=== PATIENT | male | born 1995 | race American Indian/Alaskan Native ===

== ENCOUNTER 2017-03-04 15:08 | Emergency (ER) | payer SELFPAY ==
[2017-03-04] MEDS ORDERED: TORADOL IM ONE (17:04)
--- NOTE | 2017-03-04 17:47 | XRay Report ---
FINAL REPORT PROCEDURE: XR KNEE 3V LT TECHNIQUE: Three view left knee HISTORY: fall/ LEFT KNEE PAIN COMPARISON: No prior studies are available for comparison. FINDINGS: Mild swelling left knee. No acute fracture is depicted at this time. Possible trace effusion. Inferior patellar pole osteophytic eburnation IMPRESSION: No acute fracture
--- NOTE | 2017-03-04 18:47 | Emergency Department Report ---
Entered by PANDA JORDAN, acting as scribe for BLAINE PLUNKETT NP. ED Lower Extremity HPI - General Chief Complaint: Extremity Injury, Lower Stated Complaint: LEFT LEG PAIN Time Seen by Provider: 03/04/17 16:15 Source: patient Mode of arrival: Ambulatory Limitations: No Limitations - History of Present Illness Initial Comments: This is a 21-year-old male nontoxic, well nourished in appearance, no acute signs of distress, present to ED c/o left knee pain that started today around 1300. Patient states he was playing basketball when he landed on his stated he twisted his ankle. Patient denies popping sensation. Denies any deformity. Patient reports aggravation when walking. Patient denies deformity, chest pain, shortness of breathe, headache, head trauma, LOC, numbness, tingling, stiff neck , nausea, or vomiting. No PMHx. CHRIS. Complaint: knee injury (left) -: This afternoon (1300) Injury: Knee: Left Place: street/outdoors (while playing basketball) Severity: moderate Severity scale (0 -10): 5 Improves With: nothing Worsens With: weight bearing, movement Context: fall Associated Symptoms: able to partially bear weight, ambulatory. denies: snap/ pop sensation, swelling, numbness, tingling - Related Data Previous Rx's Medication Instructions Recorded Last Taken Type Ibuprofen [Motrin 600 MG tab] 600 mg PO Q8H PRN #30 tablet 03/04/17 Unknown Rx Allergies Allergy/AdvReac Type Severity Reaction Status Date / Time No Known Allergies Allergy Unverified 03/04/17 15:27 ED Review of Systems Comment: All other systems reviewed and negative Constitutional: denies: chills, fever, weakness Eyes: denies: eye pain, eye discharge, vision change ENT: denies: ear pain, throat pain Respiratory: denies: cough, shortness of breath, wheezing Cardiovascular: denies: chest pain, palpitations Endocrine: no symptoms reported Gastrointestinal: denies: abdominal pain, nausea, vomiting, diarrhea Genitourinary: denies: urgency, dysuria Musculoskeletal: denies: back pain, joint swelling, arthralgia Skin: denies: rash, lesions Neurological: denies: headache, weakness, numbness, paresthesias Psychiatric: denies: anxiety, depression Hematological/Lymphatic: denies: easy bleeding, easy bruising ED Past Medical Hx - Past Medical History Previous Medical History?: No - Surgical History Past Surgical History?: No - Social History Smoking Status: Never Smoker Substance Use Type: None - Medications Home Medications: Home Medications Medication Instructions Recorded Confirmed Last Taken Type Ibuprofen [Motrin 600 MG tab] 600 mg PO Q8H PRN #30 tablet 03/04/17 Unknown Rx ED Physical Exam - General Limitations: No Limitations General appearance: alert, in no apparent distress - Head Head exam: Present: atraumatic, normocephalic, normal inspection - Eye Eye exam: Present: normal appearance, PERRL, EOMI. Absent: scleral icterus, conjunctival injection, nystagmus, periorbital swelling, periorbital tenderness Pupils: Present: normal accommodation - ENT ENT exam: Present: normal exam, normal orophraynx, mucous membranes moist, TM's normal bilaterally, normal external ear exam - Neck Neck exam: Present: normal inspection, full ROM. Absent: tenderness, meningismus - Respiratory Respiratory exam: Present: normal lung sounds bilaterally. Absent: respiratory distress, wheezes, rales, rhonchi, stridor, chest wall tenderness, accessory muscle use, decreased breath sounds, prolonged expiratory - Cardiovascular Cardiovascular Exam: Present: regular rate, normal rhythm, normal heart sounds. Absent: bradycardia, tachycardia, irregular rhythm, systolic murmur, diastolic murmur, rubs, gallop - GI/Abdominal GI/Abdominal exam: Present: soft, normal bowel sounds. Absent: distended, tenderness, guarding, rebound, rigid, diminished bowel sounds - Rectal Rectal exam: Present: deferred - Extremities Exam Extremities exam: Present: normal inspection, full ROM, tenderness, normal capillary refill. Absent: pedal edema, joint swelling, calf tenderness - Expanded Lower Extremity Exam Left Hip exam: Present: normal inspection, full ROM, external rotation, internal rotation, pelvic stability. Absent: tenderness, swelling, abrasion, laceration , ecchymosis, deformity, crepidus, dislocation, erythema, shortening Upper Leg exam: Present: normal inspection, full ROM. Absent: tenderness, swelling, abrasion, laceration, ecchymosis, deformity, crepidus, dislocation, erythema Knee exam: Present: normal inspection, full ROM, full knee extension (with pain) . Absent: tenderness, swelling, abrasion, laceration, ecchymosis, deformity, crepidus, dislocation, erythema, effusion, pain w/ pronation/supination, posterior draw sign, pain/laxity with valgus, pain/laxity with varus Lower Leg exam: Present: normal inspection, full ROM. Absent: tenderness, swelling, abrasion, laceration, ecchymosis, deformity, crepidus, dislocation, erythema, palpable cord, Darnell's sign Ankle exam: Present: normal inspection, full ROM. Absent: tenderness, swelling , abrasion, laceration, ecchymosis, deformity, crepidus, dislocation, erythema, anterior draw sign Foot/Toe exam: Present: normal inspection, full ROM. Absent: tenderness, swelling, abrasion, laceration, ecchymosis, deformity, crepidus, dislocation, erythema, amputation, puncture wound, foreign body, calcaneal tenderness, tenderness at base of 5th metatarsal, nail avulsion, subungual hematoma Neuro vascular tendon exam: Present: no vascular compromise. Absent: pulse deficit, abnormal cap refill, motor deficit, sensory deficit, tendon deficit, extremity cold to touch, pallor, abnormal 2-point discrimination, decreased fine /light touch, foot drop, peroneal nerve deficit, significant pain with passive ROM of distal joint Gait: Positive: observed and normal - Back Exam Back exam: Present: normal inspection, full ROM. Absent: tenderness, CVA tenderness (R), CVA tenderness (L), muscle spasm, paraspinal tenderness, vertebral tenderness, rash noted - Neurological Exam Neurological exam: Present: alert, oriented X3, CN II-XII intact, normal gait, reflexes normal - Psychiatric Psychiatric exam: Present: normal affect, normal mood - Skin Skin exam: Present: warm, dry, intact, normal color. Absent: rash ED Course Vital Signs 03/04/17 03/04/17 15:25 17:21 Temperature 98.6 F Pulse Rate 86 Respiratory 18 18 Rate Blood Pressure 126/87 O2 Sat by Pulse 100 Oximetry - Reevaluation(s) Reevaluation #1: 03/04/17 17:58 Patient is able to speak in full sentences with no signs of distress noted. ED Lower Extremity MDM - Medical Decision Making Ed course: This is a 21-year-old male that presents to the ED c/o left knee strain 1- patient was examined by myself. Patient received an xray to the left knee with negative for fracture or dislocation. Dictated by radiologist. Patient was notified of xray findings with no further questions noted by the patient 2- patient received a knee immobiliser with crutches. Crutches was educated by a nurse. 3- patient received Toradol IM in the ED for pain. 4- patient was instructed to follow-up with her orthopedic doctor in 24 hours for possibility of an MRI or if symptoms such as numbness, tingling, joint swelling, joint redness, stiff neck, fever, chills, headache, chest pain or short of breath returns emergency room as soon as possible. 5- patient was also treated to rest, elevate, and ice extremity. 6- At time time of discharge, the patient does not seem toxic or ill in appearance. No acute signs of distress noted. Patient agrees to discharge treatment plan of care. No further questions noted by the patient. ED Disposition Clinical Impression: Knee strain Qualifiers: Encounter type: initial encounter Laterality: left Qualified Code(s): S86.912A - Strain of unspecified muscle(s) and tendon(s) at lower leg level, left leg, initial encounter Disposition: DC-01 TO HOME OR SELFCARE Is pt being admited?: No Does the pt Need Aspirin: No Condition: Stable Instructions: Ibuprofen (By mouth), Crutch Instructions (ED), Knee Pain (ED), Knee Immobilizer (ED) Additional Instructions: follow-up with a orthopedic doctor in 24 hours for possibility of an MRI or if symptoms such as numbness, tingling, joint swelling, joint redness, stiff neck, fever, chills, headache, chest pain or short of breath returns emergency room as soon as possible. Rest, elevate, ice extremity. Prescriptions: Ibuprofen [Motrin 600 MG tab] 600 mg PO Q8H PRN #30 tablet PRN Reason: Pain Referrals: PRIMARY CARE, [Primary Care Provider] - 3-5 Days TYE ALLEN MD [Staff Physician] - 3-5 Days [facility] [Outside] - 3-5 Days [facility] [Outside] - 3-5 Days MANE BHAGAT MD [Staff Physician] - 24 Hours Forms: Work/School Release Form(ED) This documentation as recorded by the JULIAN gibbons PEARL,accurately reflects the service I personally performed and the decisions made by me,BLAINE PLUNKETT, DUSTIN.
[2017-03-04 20:04] VITALS: BP 115/69
== END 2017-03-04 19:00 | disposition home or self-care (01) ==
LOC: ED 15:08
DX: S86.912A Strain of unspecified muscle(s) and tendon(s) at lower leg level, left leg, initial encounter (principal); X58.XXXA Exposure to other specified factors, initial encounter; Y93.89 Activity, other specified; Y92.89 Other specified places as the place of occurrence of the external cause; Y99.9 Unspecified external cause status
CPT/HCPCS: 29505; 73562; 96372; 99283; J1885

== ENCOUNTER 2021-09-19 09:27 | Emergency (ER) | payer SELFPAY ==
[2021-09-19] MEDS ORDERED: IBUPROFEN 800 MG TAB PO ONE (09:47)
[2021-09-19] MEDS ORDERED: CYCLOBENZAPRINE 10 MG TAB PO ONE (09:47)
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
[2021-09-19] MEDS ORDERED: predniSONE 20 MG TAB PO NR (10:00)
[2021-09-19 10:12] VITALS: BP 129/92
== END 2021-09-19 10:14 | disposition home or self-care (01) ==
LOC: ED 09:27
DX: S39.012A Strain of muscle, fascia and tendon of lower back, initial encounter (principal); V87.7XXA Person injured in collision between other specified motor vehicles (traffic), initial encounter; Y93.89 Activity, other specified; Y92.89 Other specified places as the place of occurrence of the external cause; Y99.8 Other external cause status
CPT/HCPCS: 99282